=== PATIENT | female | born 1985 | race Caucasian/White ===

== ENCOUNTER 2024-03-05 14:23 | Inpatient (IN) ==
[2024-03-05] MEDS: Lactated Ringers 1000 ml BAG 1,000 ML IV ONE (15:57)
[2024-03-05 16:07] LABS: Urine Appearance Turbid; Urine Bilirubin Negative (Negative); Urine Blood Negative (Negative); Urine Color Yellow; Urine Glucose Negative (Negative); Urine Ketones 1+ (Negative); Urine Nitrite Negative (Negative); Urine Protein Trace (Negative); Urine Specific Gravity 1.022 (1.002-1.030); Urine Urobilinogen Negative (Negative); Urine pH 5.5 (5.0-8.0)
[2024-03-05 16:11] LABS: Hematocrit 19.7 % (35-45); Hemoglobin 6.1 g/dL (11.5-14.3); Mean Corpuscular Hemoglobin 18.8 pg (27-33); Mean Corpuscular Hgb Conc 31.1 g/dL (31-36); Mean Corpuscular Volume 60.5 fL (80-97); Mean Platelet Volume 8.8 fL (7.5-11.2); Platelet Count 448 10^3/uL (150-450); Red Blood Count 3.25 10^6/uL (3.63-4.92); Red Cell Distribution Width 17.9 % (12-17); White Blood Count 7.2 10^3/uL (3.8-11.8)
[2024-03-05 16:14] LABS: Urine Bacteria 1+ /HPF (Absent); Urine Red Blood Cell 1+(3-5/hpf) /HPF (0-Trace); Urine Squamous Epithelial Cell Present /HPF (Absent); Urine White Blood Cell 1+(6-10/hpf) /HPF (0-Trace)
[2024-03-05 16:39] LABS: ALT 13 U/L (7-52); Albumin 4.2 g/dL (3.5-5.7); Albumin/Globulin Ratio 1.7 (1-3); Alkaline Phosphatase 46 U/L (35-149); Anion Gap 6 mmol/L (2-16); Blood Urea Nitrogen 6 mg/dL (6-24); C Reactive Protein < 1.00 mg/L (<8.01); CO2 Carbon Dioxide 24 mmol/L (22-32); Calcium 8.6 mg/dL (8.6-10.3); Chloride 103 mmol/L (101-111); Creatinine, Serum 0.64 mg/dL (0.51-0.95); Globulin 2.5 g/dL (2-4); Glucose 109 mg/dL (70-100); HCG Pregnancy < 0.60 mIU/mL; Lipase 26 U/L (11.0-82.0); Sodium 133 mmol/L (135-145); Total Bilirubin 0.4 mg/dL (0.2-1.0); Total Protein 6.7 g/dL (6.4-8.9); eGFR CKD-EPI 115.2 (>60)
[2024-03-05] MEDS: Pantoprazole VIAL 40 MG VIAL IV ONE (16:49)
[2024-03-05] MEDS: Ondansetron 4 mg VIAL 2 MG/ML 2 ml VIAL IV ONE (16:50)
[2024-03-05] MEDS: Acetaminophen IV 1 GM/100ML 1,000 MG/100 ML BAG IV ONE (16:50)
[2024-03-05 17:03] LABS: Ferritin 2.4 ng/mL (11-307)
[2024-03-05 17:07] LABS: ABS Basophils 0.2 10^3/uL (0.0-0.1); ABS Eosinophils 0.1 10^3/uL (0.0-0.5); ABS Lymphocytes 1.5 10^3/uL (1.0-4.8); ABS Monocytes 0.5 10^3/uL (0.0-0.9); ABS Neutrophils 4.9 10^3/uL (1.5-7.6); Anisocytosis 2+; Eosinophil % 1.4 %; Hypochromasia 1+; Lymphocyte % 20.2 %; Microcytosis 3+; Nucleated Red Blood Cells % 0.1 %/100WBC (0.0-0.8); Polychromasia 1+; Target Cells 1+
[2024-03-05] MEDS: Iohexol 350 (CONTRAST) 500 ML MDV IV ONE (17:39)
[2024-03-05 17:41] LABS: Potassium Redraw 4.4 mmol/L (3.5-5.0)
[2024-03-05 21:34] LABS: % Iron Saturation 4 % (15-55); .Transferrin 322 mg/dL (203-362); Iron < 20 ug/dL (50-212); Total Iron Binding Capacity 451 mcg/dL (250-450); Unsaturated Iron Binding 431 ug/dL
[2024-03-06 00:47] LABS: Hematocrit 23.6 % (35-45); Hemoglobin 7.5 g/dL (11.5-14.3)
[2024-03-06] MEDS ORDERED: Ferric Gluconate IV 250 MG in NS 0.9% 250 ml 200 ML IVPB SCH ×2 (01:00→09:00)
[2024-03-06] MEDS: Ferric Gluconate IV 250 MG in NS 0.9% 250 ml 200 ML IVPB SCH (02:22)
[2024-03-06] MEDS: Acetaminophen IV 1 GM/100ML 1,000 MG/100 ML BAG IV PRN (02:53)
[2024-03-06] MEDS: Pantoprazole VIAL 40 MG VIAL IV SCH (06:13)
[2024-03-06 07:05] LABS: Calcium 7.8 mg/dL (8.6-10.3); Creatinine, Serum 0.66 mg/dL (0.51-0.95); Potassium 4.1 mmol/L (3.5-5.0); eGFR CKD-EPI 114.4 (>60)
[2024-03-06 07:08] LABS: Hematocrit 23.3 % (35-45); Hemoglobin 7.5 g/dL (11.5-14.3); Mean Corpuscular Hemoglobin 21.9 pg (27-33); Mean Corpuscular Hgb Conc 32.4 g/dL (31-36); Mean Corpuscular Volume 67.4 fL (80-97); Red Blood Count 3.45 10^6/uL (3.63-4.92); Red Cell Distribution Width 27.3 % (12-17); White Blood Count 6.3 10^3/uL (3.8-11.8)
[2024-03-06 07:10] LABS: Activated Partial Thrombo Time 34.4 seconds (26.0-38.0); INR 1.15 (0.85-1.14)
[2024-03-06 07:46] LABS: ABS Basophils 0.1 10^3/uL (0.0-0.1); ABS Eosinophils 0.1 10^3/uL (0.0-0.5); ABS Lymphocytes 1.9 10^3/uL (1.0-4.8); ABS Monocytes 0.5 10^3/uL (0.0-0.9); ABS Neutrophils 3.7 10^3/uL (1.5-7.6); Eosinophil % 1.8 %; Lymphocyte % 30.3 %; Mean Platelet Volume 8.9 fL (7.5-11.2); Nucleated Red Blood Cells % 0.1 %/100WBC (0.0-0.8); Platelet Count 298 10^3/uL (150-450)
[2024-03-06] MEDS ORDERED: Propofol 10 MG/ML 20 ML BTL ONE (14:50)
[2024-03-06] MEDS ORDERED: Lidocaine 2% PF 5 ML VIAL ONE (14:53)
[2024-03-06] MEDS ORDERED: fentaNYL 100 mcg/2 ml 50 MCG/ML VIAL ONE (15:28)
[2024-03-06] MEDS ORDERED: EPINEPHrine SYR 0.1MG/ML 10 ml SYRINGE IV ONE (15:59)
[2024-03-06] MEDS ORDERED: Ondansetron 4 mg VIAL 2 MG/ML 2 ml VIAL ONE (16:06)
[2024-03-07 08:13] LABS: Hematocrit 22.8 % (35-45); Hemoglobin 7.4 g/dL (11.5-14.3); Mean Corpuscular Hemoglobin 21.8 pg (27-33); Mean Corpuscular Hgb Conc 32.3 g/dL (31-36); Mean Corpuscular Volume 67.5 fL (80-97); Mean Platelet Volume 8.9 fL (7.5-11.2); Platelet Count 308 10^3/uL (150-450); Red Blood Count 3.38 10^6/uL (3.63-4.92); Red Cell Distribution Width 26.9 % (12-17); White Blood Count 5.1 10^3/uL (3.8-11.8)
[2024-03-07 08:37] LABS: Calcium 8.1 mg/dL (8.6-10.3); Creatinine, Serum 0.69 mg/dL (0.51-0.95); Potassium 4.1 mmol/L (3.5-5.0); eGFR CKD-EPI 113.1 (>60)
[2024-03-07 08:44] LABS: ABS Basophils 0.1 10^3/uL (0.0-0.1); ABS Eosinophils 0.2 10^3/uL (0.0-0.5); ABS Lymphocytes 1.4 10^3/uL (1.0-4.8); ABS Monocytes 0.4 10^3/uL (0.0-0.9); ABS Nucleated RBC 0.01 10^3/ul; Eosinophil % 2.9 %; Lymphocyte % 27.6 %; Nucleated Red Blood Cells % 0.2 %/100WBC (0.0-0.8)
[2024-03-07] MEDS ORDERED: Sucralfate 1 gm SUSP 1 GM/10 ML UDC PO PRN (17:30)
[2024-03-08] MEDS: Ondansetron 4 mg VIAL 2 MG/ML 2 ml VIAL IV PRN (02:21)
[2024-03-08 06:09] LABS: Creatinine, Serum 0.74 mg/dL (0.51-0.95); Potassium 3.9 mmol/L (3.5-5.0); eGFR CKD-EPI 105.5 (>60)
[2024-03-08 07:00] LABS: Hematocrit 24.7 % (35-45); Hemoglobin 7.8 g/dL (11.5-14.3); Mean Corpuscular Hemoglobin 21.9 pg (27-33); Mean Corpuscular Hgb Conc 31.6 g/dL (31-36); Mean Corpuscular Volume 69.3 fL (80-97); Mean Platelet Volume 9.4 fL (7.5-11.2); Platelet Count 143 10^3/uL (150-450); Red Blood Count 3.57 10^6/uL (3.63-4.92); Red Cell Distribution Width 27.4 % (12-17); White Blood Count 5.4 10^3/uL (3.8-11.8)
[2024-03-09 06:09] LABS: Hematocrit 22.8 % (35-45); Hemoglobin 7.3 g/dL (11.5-14.3); Mean Corpuscular Hemoglobin 22.3 pg (27-33); Mean Corpuscular Hgb Conc 32.1 g/dL (31-36); Mean Corpuscular Volume 69.7 fL (80-97); Mean Platelet Volume 9.1 fL (7.5-11.2); Platelet Count 295 10^3/uL (150-450); Red Blood Count 3.28 10^6/uL (3.63-4.92); Red Cell Distribution Width 28.4 % (12-17); White Blood Count 5.1 10^3/uL (3.8-11.8)
[2024-03-09 06:18] LABS: Creatinine, Serum 0.79 mg/dL (0.51-0.95); Potassium 4.1 mmol/L (3.5-5.0); eGFR CKD-EPI 97.5 (>60)
[2024-03-09 06:28] LABS: ABS Basophils 0.1 10^3/uL (0.0-0.1); ABS Eosinophils 0.2 10^3/uL (0.0-0.5); ABS Monocytes 0.5 10^3/uL (0.0-0.9); ABS Neutrophils 2.3 10^3/uL (1.5-7.6); ABS Nucleated RBC 0.02 10^3/ul; Anisocytosis 2+; Eosinophil % 3.6 %; Lymphocyte % 39.5 %; Microcytosis 3+; Nucleated Red Blood Cells % 0.5 %/100WBC (0.0-0.8); Polychromasia 1+
[2024-03-09 10:16] VITALS: BP 102/74
== END 2024-03-09 13:50 | disposition home or self-care (01) | DRG 253 ==
LOC: ED 14:23 → SSU 14:23 → SUATTDRO 19:47 → SSU 03-06 01:14 → SUATTDRO 03-06 12:00
PROVIDERS: ADMIT Student in an Organized Health Care Education/Training Program; ATTEND Internal Medicine
PROC: O.GIEGD (2024-03-06 14:05)